=== PATIENT | female | born 1940 | race Caucasian/White ===

== ENCOUNTER 2017-05-30 10:38 | Outpatient (CLI) | payer MEDICARE ==
--- NOTE | 2017-05-30 19:48 | ULT ---
ULTRASOUND OF THE CHEST WALL: Date: 05-30-17 Technique: Ultrasonography of the right posterior chest was performed over a palpable abnormality in the right upper thoracic region. Multiple images and worksheets were provided and reviewed. FINDINGS: There is a solid mass shown in the right upper thoracic region posteriorly that measures 5.3 x 3.2 x 5.4 cm. It is mixed echoes internally and not completely homogeneous. Entities such as a lipoma usu ally would have a more homogeneous and more echogenic appearance. While that diagnosis is not ruled out, it seems a little less likely. Some blood flow is noted in the mass. There are no cystic compon ents to it. IMPRESSION: 5.4 cm fairly well defined solid mass. Because it is not completely homogeneous or terribly echogen ic internally, a lipoma does not seem to be the best diagnosis. A solid mass, benign or malignant, i s possible. A CT or MRI might better define what it arises from or is connected to. A definitive benedicto gnosis would probably only come from a biopsy. Code T POS: HOME
== END 2017-05-30 10:39 | disposition home or self-care (01) ==
LOC: BURULT 10:38
PROVIDERS: ATTEND Family Medicine
DX: R22.2 Localized swelling, mass and lump, trunk (principal)